=== PATIENT | male | born 1940 | race Caucasian/White ===

== ENCOUNTER 2019-08-03 13:45 | Inpatient (IN) | payer MEDICARE, OTHER ==
[~2019-08-03] VITALS: Ht 172.7 cm; Wt 57.0 kg
--- NOTE | 2019-08-03 18:00 | NUR ---
PT ADMITTED FROM HOME DUE TO AGGRESSION WITH REDIRECTION AND WANDERING. PT. FOUND ON [address] PER 'S REPORT. PT IS CALM AND COOPERATIVE WITH ADMIT AT THIS TIME. ADMIT WT IS 139.8. PT IS FULL CODE. VERBAL CONSENT PER MARIE RIZO. REC'D CODE NUMBER AND PT ADMISSION PAPERWORK AT THIS TIME.
[2019-08-03 19:00] VITALS: BP 128/77
--- NOTE | 2019-08-03 20:21 | NUR ---
RECEIVED IN DAYROOM. SITTING CALMLY IN A CHAIR WITH PEERS AT HIS SIDE. CALM AND COOPERATIVE WITH CARE AND ASSESSMENT. NO SIGNS OF AGGRESSION. REDIRECT AND REORIENT NEEDED. CONTINUES TO SIT CALMLY IN DAYROOM. CONTINUE PLAN OF CARE.
[2019-08-03 23:42] VITALS: BP 128/77; BMI 21.3
[2019-08-04] MEDS ORDERED: FLOMAX0.4 MG PO (00:19)
[2019-08-04] MEDS ORDERED: CENTRUM MEN'S1 EACH PO (00:20)
[2019-08-04] MEDS ORDERED: GABAPENTIN300 MG PO (00:20)
[2019-08-04] MEDS ORDERED: MELATONIN10 M1 PO (00:20)
[2019-08-04] MEDS ORDERED: BAYER CHEWABLE81 MG PO (00:21)
[2019-08-04] MEDS ORDERED: POTASSIUM99 M1 PO (00:21)
[2019-08-04] MEDS ORDERED: TYLENOL ARTHRI650 MG PO (00:21)
[2019-08-04 07:25] LABS: EOSINOPHILS 2.9 % (0-7); HEMATOCRIT 37.5 % (42.0-54.0); HEMOGLOBIN 12.3 g/dL (13.5-17.5); IMMATURE GRANULOCYTES 0.5 % (0-5); LYMPHOCYTES 34.2 % (15-50); MCH 30.5 pg (26.0-34.0); MCHC 32.8 g/dL (31.0-37.0); MCV 93.1 fL (80.0-100.0); MEAN PLATELET VOLUME 10.3 fL (7.4-10.4); MONOCYTES 10.8 % (2-11); NEUTROPHILS 50.6 % (40-80); PLATELET COUNT 189 10x3/uL (130-400); RBC 4.03 10x6/uL (4.20-6.10); RDW 13.2 % (11.5-14.5); WBC 4.2 10x3/uL (4.8-10.8)
[2019-08-04 08:08] LABS: ALBUMIN 3.5 g/dL (3.4-5.0); ANION GAP 10.5 mmol/L (8-16); BILIRUBIN - TOTAL 0.35 mg/dL (0.2-1.3); CALCIUM 8.8 mg/dL (8.5-10.1); CARBON DIOXIDE 29.3 mmol/L (21.0-32.0); CHOL - HDL RATIO 4.2 ratio (2.3-4.9); CREATININE - SERUM 1.3 mg/dL (0.6-1.3); LDL-HDL RATIO 2.8 ratio (1.5-3.5); POTASSIUM - SERUM 3.8 mmol/L (3.5-5.1); PROTEIN - SERUM 7.7 g/dL (6.4-8.2); THYROID STIMULATING HORMONE 2.55 uIU/mL (0.36-3.74)
[2019-08-04 08:41] VITALS: Ht 172.7 cm; Wt 57.0 kg
[2019-08-04 08:58] VITALS: BP 140/86
--- NOTE | 2019-08-04 10:15 | NUR ---
PT REFUSED TO GIVE CLEAN CATCH FOR URINE AND CULTURE. ATTEMPTED 2X AND PT BECAME AGITATED AND COMBATIVE. UNABLE TO OBTAIN SPECIMAN. WILL ATTEMPT AT A LATER TIME.
--- NOTE | 2019-08-04 11:25 | NUR ---
PT BECAME COMBATIVE WITH STAFF AT THIS TIME. PT HAD BEEN EXIT SEEKING, AGITATED. ATIVAN 0.5 MG IM AND HALDOL 2 MG IM GIVEN PER DR. GARCIA ORDER. PT TOLERATED WELL. WILL CONT TO MONITOR. WILL REASSES.
--- NOTE | 2019-08-04 12:25 | NUR ---
NO AGGRESSION NOTED AT THIS TIME. PT REMAINS ACTIVE DURING THIS TIME. PRN EFFECTIVE.
[2019-08-04 20:00] VITALS: BP 164/91
--- NOTE | 2019-08-04 20:33 | NUR ---
RECEIVED IN DAYROOM. SITTING ON THE SOFA. KEEPING TO HIMSELF. CALM AND COOPERATIVE WITH CARE AND ASSESSMENT. NO SIGNS OF AGGRESSION. REDIERCT AND REORIENT NEEDED. CONTINUES TO SIT CALMLY IN DAYROOM. CONTINUE PLAN OF CAER.
--- NOTE | 2019-08-04 21:14 | NUR ---
BECOMING INCREASINGLY AGITATED. HIGH ANXIETY. PRN ATIVAN 0.5 MG IM GIVEN FOR ANXIETY AND PRN HALDOL GIVEN FOR PSYCHOTIC BEHAVIOR. CONTINUE TO MONITOR.
--- NOTE | 2019-08-05 00:01 | NUR ---
CONTINUES TO BE RESTLESS. ATTEMPTS TO STAND FROM BED WITHOUT ASSIST. MOVED TO HALLWAY AT NURSES STATION FOR SAFETY.
[2019-08-05 07:13] LABS: RAPID PLASMA REAGIN Non Reactive (Non Reactive)
[2019-08-05 08:00] VITALS: BP 157/91
--- NOTE | 2019-08-05 12:59 | NUR ---
RECEIVED IN HALLWAY OUTSIDE OF NURSES STATION. CALM AND COOPERATIVE WITH CARE AND ASSESSMENT. NO AGGRESSION THIS MORNING. REDIRECT AND REORIENT NEEDED. EATING AT THIS TIME. CONTINUE PLAN OF CARE.
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
[2019-08-05 20:00] VITALS: BP 145/96
--- NOTE | 2019-08-06 00:38 | NUR ---
B.) PT IS ALERT AND ORIENTED TO SELF ONLY. HE IS RECEIVED IN THE DAYROOM PACING THE ROOM. HE IS INTRUSIVE WITH STAFF AND ATTEMPTING TO TAKE FOOD OUT OF THE REFRIGERATOR. HE IS AGITATED AND LABILE IN HIS MOODS. I.) PROVIDED PM MEDICATIONS PRESCRIBED. REDIRECT OFTEN. R.) COMPLIANT WITH ALL MEDICATIONS. DIFFICULT TO REDIRECT. P.) WILL CONTINUE TO MONITOR.
[2019-08-06 00:51] LABS: BILIRUBIN NEGATIVE (NEGATIVE); GLUCOSE NEGATIVE (NEGATIVE); KETONE NEGATIVE (NEGATIVE); NITRITE NEGATIVE (NEGATIVE); UROBILINOGEN NORMAL (NORMAL)
--- NOTE | 2019-08-06 08:16 | NUR ---
PT IS RECEIVED THIS MORNING SITTING IN A GERICHAIR. HE IS CALM AND COOPERATIVE WITH STAFF. HE IS A LITTLE UNSTEADY THIS MORNING. HE IS ABLE TO VOICE HIS NEEDS AND WANTS. CURRENTLY ONLY ALERT AND ORIENTED TO SELF. WILL CONTINUE TO MONITOR.
[2019-08-06 10:25] VITALS: BP 166/97
--- NOTE | 2019-08-06 12:57 | PN ---
PATIENT:LISA RIZO MEDICAL RECORD: [id number] LOCATION:[facility] ADMISSION DATE: 08/03/19 PROGRESS NOTE DATE OF SERVICE: 08/05/2019 SUBJECTIVE: The patient's case was discussed with staff. He has no new complaint. OBJECTIVE: The patient is not eating adequately. He is quite confused and at times very agitated. ASSESSMENT: Dementia. PLAN: The patient will be continued on current medicines; however, I am going to start him on Megace for appetite stimulation. I am also going to give him a low dose of Seroquel to assist with his thought disorganization and disruptive behaviors. TRANSINT:[id number] Voice Confirmation ID: [id number] DOCUMENT ID: [id number] ERNIE GARCIA MD at 1257 CC: [id number] DICTATION DATE: 08/05/19 1445 SECURITY FLEX UTILITY OFFICER: 08/05/19 1522 [facility] IN [place] [address] [place] [address]
--- NOTE | 2019-08-06 23:00 | NUR ---
B) Patient is alert and oriented to self, restless and very confused, difficult to redirect I) Administered scheduled medications as ordered, PRN Ativan 0.5 mg IM given at 20:51 for anxiety R) Mediation compliant, still resless at times, restless sleep P) Continue plan of care/
--- NOTE | 2019-08-07 09:37 | NUR ---
The patient is real sleepy this am, he is laying back in the recliner with his neck postured. He awakened to take his am meds, he also spoke to Kacy Mora RN, respiratory care program director when she spoke to him. He is pleasant. Staff have to assist him to eat. Provide prescribed. The patient is compliant with meds. Continue POC.
[2019-08-07 10:22] VITALS: BP 116/78
--- NOTE | 2019-08-07 11:56 | NUR ---
PT NOTED POCKETING FOOD FROM BREAKFAST. SPEECH THERAPY CONSULT ORDERED.
--- NOTE | 2019-08-07 14:45 | PN ---
PATIENT:LISA RIZO MEDICAL RECORD: [id number] LOCATION:[facility] ADMISSION DATE: 08/03/19 PROGRESS NOTE DATE OF SERVICE: 08/06/2019 SUBJECTIVE: The patient's case was discussed with staff. He has no new complaint. OBJECTIVE: The patient is in good behavioral control. He has poor insight about his situation. He is less aggressive than he has been. ASSESSMENT: Dementia. PLAN: Current medicines and therapies have been reviewed and will be maintained. Long-term prognosis is guarded. TRANSINT:[id number] Voice Confirmation ID: [id number] DOCUMENT ID: [id number] ERNIE GARCIA MD at 1445 CC: [id number] DICTATION DATE: 08/06/19 1521 GUN SEALING MACHINE OPERATOR: 08/06/19 2316 ADM IN [place] [id number] [place] [address]
--- NOTE | 2019-08-07 15:46 | NUR ---
Nutrition Follow-up: Seen by ST today and LEAD ENGINEER recommends [facility] Soft, thin liquids. Appetite improved and started on Megace yesterday per MD notes. Diet: Regular [facility] Soft PO intake: ~54% average x last 6 meals Last BM: none recorded since admit (x at least 4 days). WT: 139.8# (08/04/19) Meds noted: megace. No new labs. Recommend continue current diet or per LEAD ENGINEER recommendations for consistency. Hopefully megace will continue to help. May add oral nutrition supplement if PO intake does not improve. RD following.
[2019-08-07 20:10] VITALS: BP 120/84
--- NOTE | 2019-08-07 23:37 | NUR ---
B.) PT IS ALERT AND ORIENTED TO SELF ONLY. HE HAS POOR INSIGHT INTO HIS SITUATION. HE IS OBSERVED HAVING VISUAL HALLUCINATIONS. I.) PROVIDED PM MEDICATIONS PRESCRIBED. REDIRECT OFTEN. R.) COMPLIANT WITH ALL MEDICATIONS. EASY TO REDIRECT. P.) WILL CONTINUE TO MONITOR.
--- NOTE | 2019-08-08 11:16 | NUR ---
The patient is awake, he knows his name only. He is hallucinating and grabbing at things in the air. He is pleasant and has not shown any aggression. Provide prescribed meds. The patient is compliant with meds, crushed and given in thickened fluids. He still continues to pocket his food, but does better with softer foods. Continue POC.
[2019-08-08 11:35] VITALS: BP 127/85
--- NOTE | 2019-08-08 12:46 | PN ---
PATIENT:LISA RIZO MEDICAL RECORD: [id number] LOCATION:[facility] ADMISSION DATE: 08/03/19 PROGRESS NOTE DATE OF SERVICE: 08/07/2019 SUBJECTIVE: The patient's case was discussed with staff. He has no new complaint. OBJECTIVE: The patient denies intent to harm himself or others. His behavior has been better. He ate reasonably well yesterday and slept 6 hours last night. ASSESSMENT: Dementia. PLAN: Speech has seen the patient because there has been observed problems with him processing the food. He will be monitored for clinical changes, and at this point, I do not have the report back from speech pathology, but we will naturally follow their recommendations. TRANSINT:[id number] Voice Confirmation ID: [id number] DOCUMENT ID: [id number] ERNIE GARCIA MD at 1246 CC: [id number] DICTATION DATE: 08/07/19 1523 WEDDING PLANNER: 08/08/19 0039 ADM IN [place] [id number] [place] [address]
[2019-08-08 13:17] LABS: BASOPHILS 0.1 % (0-2); EOSINOPHILS 0 % (0-7); HEMATOCRIT 37.7 % (42.0-54.0); HEMOGLOBIN 12.6 g/dL (13.5-17.5); IMMATURE GRANULOCYTES 0.3 % (0-5); LYMPHOCYTES 10.8 % (15-50); MCHC 33.4 g/dL (31.0-37.0); MCV 92.9 fL (80.0-100.0); MEAN PLATELET VOLUME 9.9 fL (7.4-10.4); MONOCYTES 14.3 % (2-11); NEUTROPHILS 74.5 % (40-80); PLATELET COUNT 163 10x3/uL (130-400); RBC 4.06 10x6/uL (4.20-6.10); RDW 13.8 % (11.5-14.5); WBC 8.9 10x3/uL (4.8-10.8)
[2019-08-08 13:51] LABS: ALBUMIN 3.4 g/dL (3.4-5.0); ANION GAP 12.2 mmol/L (8-16); BILIRUBIN - TOTAL 0.72 mg/dL (0.2-1.3); CALCIUM 9.4 mg/dL (8.5-10.1); CARBON DIOXIDE 27.5 mmol/L (21.0-32.0); CREATININE - SERUM 1.4 mg/dL (0.6-1.3); POTASSIUM - SERUM 3.7 mmol/L (3.5-5.1); PROTEIN - SERUM 7.8 g/dL (6.4-8.2)
[2019-08-08 20:21] VITALS: BP 126/95
--- NOTE | 2019-08-08 22:48 | NUR ---
B.) PT IS ALERT AND ORIENTED TO SELF ONLY. HE IS RECIVEIVED IN THE DAYROOM IN A GERICHAIR. HE IS HAVING VISUAL AND AUDITORY HALLUCINATIONS. HE HAS SPELLS WHERE HE IS FEARFUL OF FALLING OUT OF THE OTIS-CHAIR AND HE SHAKES UNTIL REDIRECTED. HE IS VERY RESTLESS. HE IS OBSERVED SPITTING IN HIS HANDS AND THROWING IT AT THE WALL. I.) PROVIDED PM MEDICATIONS PRESCRIBED. AND ADMINISTERED PRN ATIVAN 0.5 MG IM. REDIRECT OFTEN. R.) COMPLIANT WITH ALL MEDICATIONS. UNABLE TO REDIRECT. P.) WILL CONTINUE TO MONITOR.
--- NOTE | 2019-08-08 23:25 | NUR ---
PT IS STILL RESTLESS AND HAVING TERROR TREMORS. HE STILL FEARS HE IS FALLING. NO SIGNS OF RESPIRATORY DISTRESS. WILL CONTINUE TO MONITOR.
--- NOTE | 2019-08-08 23:52 | NUR ---
PT IS RESTING GERICHAIR IN THE HALLWAY OUTSIDE THE NURSES STATION WITH EYES CLOSED NO DISTRESS OR TREMORS NOTED. WILL CONTINUE TO MONITOR.
[2019-08-09 08:25] VITALS: BP 141/78
--- NOTE | 2019-08-09 10:53 | NUR ---
The patient is leaning over to his right side. At breakfast he said "Hold my hand I am falling." He is very sleepy now after breakfast. Physical Therapy came to see what he can do to assist the patient to stand. The patient is too sleepy to sit up or stand. Asked Dr. Mckinney if we can change his diet to puree as he continues to cheek his food. Fed him ice cream, pudding, and oatmeal. Provide prescribed meds. The patient is compliant with meds. Continue POC.
--- NOTE | 2019-08-09 13:04 | PN ---
PATIENT:LISA RIZO MEDICAL RECORD: [id number] LOCATION:[facility] ADMISSION DATE: 08/03/19 PROGRESS NOTE DATE OF SERVICE: 08/08/2019 SUBJECTIVE: The patient's case was discussed with staff. He has no new complaint. OBJECTIVE: The patient is sedated. He has not been disruptive in any way. He is denying any thoughts of harming himself or others. ASSESSMENT: Dementia. PLAN: Going to hold the patient's psychiatric medications for the time being. I am also going to check some baseline labs. TRANSINT:[id number] Voice Confirmation ID: [id number] DOCUMENT ID: [id number] ERNIE GARCIA MD at 1304 CC: [id number] DICTATION DATE: 08/08/19 1317 FREELANCE GRAPHIC DESIGNER: 08/08/19 1735 ADM IN [place] [id number] [place] [address]
--- NOTE | 2019-08-09 14:52 | PN ---
PATIENT:LISA RIZO MEDICAL RECORD: [id number] LOCATION:[facility] ADMISSION DATE: 08/03/19 PROGRESS NOTE DATE OF SERVICE: 08/09/2019 SUBJECTIVE: The patient's case was discussed with staff. He has no new complaint. OBJECTIVE: The patient is confused and impaired. He is arousable and awake, but only oriented to person. He did require some p.r.n. Ativan last night because of some agitation. He is not eating adequately. ASSESSMENT: Dementia. PLAN: The patient is going to have a CT of his head performed in case there is some neurologic explanation for this change. I suspect that it is probably related to the medications that he has been prescribed, which have now been discontinued. Also, there is a lingering effect from some of the medicine that has been used to control his behavior. I suspect he will improve over the next couple of days as those medicines have an opportunity to be washed out. As a precautionary matter, I am going to check a CT of the head. He is not on any psychoactive medications right now. TRANSINT:[id number] Voice Confirmation ID: [id number] DOCUMENT ID: [id number] ERNIE GARCIA MD at 1452 CC: [id number] DICTATION DATE: 08/09/19 1346 EKG TECH: 08/09/19 1404 ADM IN [place] [address] [place] [address]
--- NOTE | 2019-08-09 15:36 | NUR ---
Bladder scan with 49 ml noted. The patient is voiding urine.
--- NOTE | 2019-08-09 18:38 | NUR ---
The patient is too sedated to acquire a urine sample today. Will pass the information on to the next shift.
--- NOTE | 2019-08-09 19:48 | NUR ---
RECEIVED IN DAYROOM. LAYING IN RECLINER AT THE TABLE. CALM AND COOPERATIVE WITH CARE AND ASSESSMENT. RESTLESS AT TIMES. CALM AND COOPERATIVE WITH AND ASSESSMENT. NO SIGNS OF AGGRESSION. REDIRECT AND REORIENT NEEDED. CONTINUES TO REST IN RECLINER. CONTINUE PLAN OF CARE.
[2019-08-09 20:24] VITALS: BP 106/77
--- NOTE | 2019-08-09 23:32 | NUR ---
INCREASING ANXIETY. FEARFUL OF UNKNOWN THINGS. YELLING OUT LOUDLY. UNABLE TO REDIRECT. PRN ATIVAN 0.5 MG IM GIVEN FOR ANXIETY AND PRN HALDOL 2 MG IM GIVEN FOR PSYCHOTIC BEHAVIOR. CONTINUE TO MONITOR.
--- NOTE | 2019-08-10 02:04 | NUR ---
CONTINUES TO BE RESTLESS. NOT YELLING OUT AT THIS TIME. IN HALLWAY AT NURSES STATION FOR SAFETY.
[2019-08-10 09:07] VITALS: BP 136/84
--- NOTE | 2019-08-10 12:00 | NUR ---
RECEIVED IN HALLWAY OUTSIDE OF NURSES STATION. CALM AND COOPERATIVE WITH CARE AND ASSESSMENT. NO BEHAVIORS. REDRIECT AND REORIENT NEEDED. EATING LUNCH AT THIS TIME. CONTINUE PLAN OF CARE.
[2019-08-10 19:45] VITALS: BP 114/89
--- NOTE | 2019-08-10 20:19 | NUR ---
RECEIVED IN DAYROOM. SITTING IN A CHAIR WITH EYES CLOSED. RESPONDS TO TOUCH. CALM AND COOPERATIVE WITH CARE AND ASSESSMENT. NO SIGNS OF AGGRESSION. REDIRECT AND REORIENT NEEDED. CONTINUES TO SIT CALMLY WITH EYES CLOSED. CONTINUE PLAN OF CARE.
[2019-08-11 00:43] LABS: BILIRUBIN NEGATIVE (NEGATIVE); EPITHELIAL CELLS 0-5 /hpf (0-5); GLUCOSE NEGATIVE (NEGATIVE); KETONE MODERATE mg/dL (NEGATIVE); NITRITE NEGATIVE (NEGATIVE); RED CELLS - URINE 0-5 /hpf (0-5); SPECIFIC GRAVITY 1.025 (1.005-1.020); UROBILINOGEN NORMAL (NORMAL); WHITE CELLS - URINE 0-5 /hpf (NEGATIVE)
[2019-08-11 00:44] LABS: AMORPHOUS SEDIMENT <1+ /lpf (NONE SEEN); BACTERIA FEW /hpf (NEGATIVE)
[2019-08-11 09:53] VITALS: BP 142/90
--- NOTE | 2019-08-11 12:00 | NUR ---
RECEIVED IN HALLWAY OUTSIDE OF NURSES STATION. CALM AND COOPERATIVE WITH CARE AND ASSESSMENT. NO BEHAVIORS. REDIRECT AND REORIENT NEEDED. EATING LUNCH AT THIS TIME. CONTINUE PLAN OF CARE.
--- NOTE | 2019-08-11 13:53 | PN ---
PATIENT:LISA RIZO MEDICAL RECORD: [id number] LOCATION:[facility] ADMISSION DATE: 08/03/19 PROGRESS NOTE DATE OF SERVICE: 08/10/2019 SUBJECTIVE: The patient's case was discussed with staff. He has no new complaint. OBJECTIVE: The patient is only oriented to person. He is not sleeping adequately at night. He is still not eating adequately. Apparently, he became aggressive and was having both auditory and visual hallucinations last night. He did receive Haldol and Ativan for this and is still showing effects of sedation today. ASSESSMENT: Dementia. PLAN: The patient will be maintained on current medicines. I am not currently prescribing any psychoactive medicines for him. I am; however, going to start him back on Namenda. He is receiving Megace for appetite stimulation and if that is not effective obviously, his outcome is quite poor. TRANSINT:[id number] Voice Confirmation ID: [id number] DOCUMENT ID: [id number] ERNIE GARCIA MD at 1353 CC: [id number] DICTATION DATE: 08/10/19 1524 LEAN CONSULTANT: 08/11/19 0206 ADM IN [facility] [address] [place] [id number]
[2019-08-11 19:49] VITALS: BP 129/82
--- NOTE | 2019-08-12 01:12 | NUR ---
B) Patient is alert and oriented to self, calm and cooperative with care I) Administered scheduled medications as ordered, monitored for safety R) Mediation compliant, sleeping now in his bed P) Continue plan of care.
[2019-08-12 10:25] VITALS: BP 91/56
--- NOTE | 2019-08-12 11:10 | NUR ---
Nutrition Follow-up: Chart reviewed. Patient followed by ST, most recent note indicates no s/s aspiration with thin liquids or regular consistency. Per FULL CHARGE BOOKKEEPER notes nursing staff suggest that patient with increased PO intake of puree diet. Diet: Regular Puree PO intake: ~52% average x last 9 meals Last BM: no BM recorded since admit (x 9 days now) Wt: 129# (08/09/19); Admit WT: 139.8# (08/03/19) Meds noted: megace ES (started 08/06/19). Labs noted (08/08/19): BUN 30(H), Cr 1.4(H), Glu 115(H) Recommend PO diet per FULL CHARGE BOOKKEEPER recommendations. Will add Ensure with meals. Continue encouraged PO intake during meal times. May need increase in bowel regimen 2/2 no recorded BM since admit. Hopefully PO intake would improve with BM regularity. Weight loss of 10# noted. RD following.
--- NOTE | 2019-08-12 14:58 | NUR ---
RECEIVED IN HALLWAY OUTSIDE OF NURSES STATION. CALM AND COOPERATIVE WITH CARE AND ASSESSMENT. NO BEHAVIORS TODAY. REDIRECT AND REORIENT NEEDED. SITTING IN GROUP AT THIS TIME. CONTINUE PLAN OF CARE.
[2019-08-12 20:49] VITALS: BP 125/74
--- NOTE | 2019-08-13 01:38 | NUR ---
B.) PT IS ALERT AND ORIENTED TO SELF ONLY. HE HAS POOR INSIGHT INTO HIS SITUATION. HE IS RECEIVED IN THE DAYROOM IN HIS GERICHAIR. HE IS OBSERVED HAVING VISUAL HALLUCINATIONS. I.) PROVIDED PM MEDICATIONS PRESCRIBED. REDIRECT OFTEN. R.) COMPLIANT WITH ALL MEDICATIONS. EASY TO REDIRECT. P.) WILL CONTINUE TO MONITOR.
--- NOTE | 2019-08-13 08:30 | NUR ---
PATIENT IS ALERT AND ORIENTED TO SELF ONLY. RECEIVED IN HALLWAY SITTING IN OTIS-CHAIR. NO HALLUCINATIONS NOTED. REDIRECT AND REORIENT NEEDED. ADMINISTER PRESCRIBED MEDICATIONS. COMPLIANT WITH MEDICATIONS. WILL CONTINUE TO MONITOR.
--- NOTE | 2019-08-13 13:50 | NUR ---
PT HERE TO WORK WITH PT AT THIS TIME.
--- NOTE | 2019-08-13 15:30 | PN ---
PATIENT:LISA RIZO MEDICAL RECORD: [id number] LOCATION:[facility]o ADMISSION DATE: 08/03/19 PROGRESS NOTE DATE OF SERVICE: 08/11/2019 SUBJECTIVE: The patient's case was discussed with staff. He has no new complaint. OBJECTIVE: The patient is more alert and interactive, even though what he is saying is not making sense. He is pleasant, smiling and talking to me appropriately. He is still not eating adequately. ASSESSMENT: Dementia. PLAN: Current medicines have been reviewed and will be maintained. Long-term prognosis is guarded. Void nevertheless. TRANSINT:[id number] Voice Confirmation ID: [id number] DOCUMENT ID: [id number] ERNIE GARCIA MD at 1530 CC: [id number] DICTATION DATE: 08/11/19 1601 ONLINE MARKETING ANALYST: 08/12/19 0158 ADM IN [facility] [address] [place] [address]
--- NOTE | 2019-08-13 15:30 | PN ---
PATIENT:LISA RIZO MEDICAL RECORD: [id number] LOCATION:[facility] Arroyo ADMISSION DATE: 08/03/19 PROGRESS NOTE DATE OF SERVICE: 08/12/2019 SUBJECTIVE: The patient's case was discussed with staff. He has no new complaint. OBJECTIVE: The patient is significantly better cognitively. He is talking and making some sense, although it is clear he is very impaired. ASSESSMENT: Dementia. PLAN: I am going to start the patient on Namenda at a low dose. His behavior so far have been good. TRANSINT:[id number] Voice Confirmation ID: [id number] DOCUMENT ID: [id number] ERNIE GARCIA MD at 1530 CC: [id number] DICTATION DATE: 08/12/19 1645 ONCOLOGY SPECIALIST: 08/13/19 0012 ADM IN [place] [id number] [place] [address]
--- NOTE | 2019-08-13 16:30 | NUR ---
SW MET WITH PT'S , MARIE, TO DISCUSS PT'S PROGRESS AND DISCHARGE PLANNING NEEDS. SW EXPLAINED THE DIFFERENT LEVELS OF CARE AND PT'S IMPROVEMENT AT THIS TIME. PT'S STATED SHE WANTED HIM TO RETURN HOME AND HAVE SERVICES IN THE HOME ENVIRONMENT.
--- NOTE | 2019-08-13 17:52 | NUR ---
PT ATTEMPTING TO STAND UP AND AMBULATE PER SELF. REDIRECT PT NEEDED.
[2019-08-13 20:16] VITALS: BP 103/65
--- NOTE | 2019-08-13 22:23 | NUR ---
B.) PT IS ALERT AND ORIENTED TO SELF ONLY. HE HAS POOR INSIGHT INTO HIS SIUATION. HE IS CALM, COOPERATIVE AND PLEASANT WITH STAFF OFTEN OBSERVED MAKING JOKES. HE IS USING A WHEELCHAIR TO ASSIST WITH AMBULATION. STILL OBSERVED HAVING AUDITORY AND VISUAL HALLUCINATIONS IN HIS BED. I.) PROVIDED PM MEDICATIONS. REDIRECT OFTEN. R.) COMPLIANT WITH ALL MEDICATIONS. EASY TO REDIRECT. P.) WILL CONTINUE TO MONITOR.
--- NOTE | 2019-08-14 01:50 | NUR ---
ATIVAN IM GIVEN TO PATIENT FOR EXTREME AGITAITON, PATIENT WAS SHAKING THE RAILS AND POINTING AT THE WALL SAYING, "DO YOU SEE THAT?" TRIED MULTIPLE TIMES TO TALK TO HIM AND DISTRACT HIM BUT IT DID NOT WORK. PATIENT IS STILL AWAKE AT HIS TIME AND IS MOVING NON-STOP IN THE BED, NOT SHAKING THE BED RAILS. WILL CONTINUE TO MONITOR
--- NOTE | 2019-08-14 09:11 | NUR ---
SW SPOKE WITH PT'S DTR TO DISCUSS PT'S CONDITION AND DISCHARGE PLANNING NEEDS AT THIS TIME. SW STATED PT'S WANTS TO TAKE HIM HOME. PT'S DTR VOICED UNDERSTANDING OF DISCUSSION.
--- NOTE | 2019-08-14 09:12 | NUR ---
SW SPOKE TO A HOSPICE REPRESENATIVE FROM PT'S HOME TOWN. KRYSTA [phone]. SHE STATED IF PT DOESN'T QUALIFY FOR HOSPICE THERE IS A HOME HEALTH AGENCY THEY WORK WELL WITH: '[facility] [phone].
[2019-08-14 10:27] VITALS: BP 130/77
--- NOTE | 2019-08-14 12:53 | PN ---
PATIENT:LISA RIZO MEDICAL RECORD: [id number] LOCATION:[facility] ADMISSION DATE: 08/03/19 PROGRESS NOTE DATE OF SERVICE: 08/13/2019 SUBJECTIVE: The patient's case was discussed with staff. He has no new complaint. OBJECTIVE: The patient is clearly better. By better I mean, he is awake, alert, interacting and eating and drinking. I think the recent episodes were associated with him being overmedicated. He was being medicated because of his aggressive behavior. He is no longer aggressive and hopefully that will not be a problem. He did not sleep last night and he has not slept today. I am going to give him some trazodone and hopefully that will assist him with sleep tonight. TRANSINT:[id number] Voice Confirmation ID: [id number] DOCUMENT ID: [id number] ERNIE GARCIA MD at 1253 CC: [id number] DICTATION DATE: 08/13/19 1630 HOME CARE RN: 08/13/19 1650 ADM IN [place] [id number] [place] [address]
--- NOTE | 2019-08-14 13:09 | NUR ---
The patient is sleeping today. He awakened to eat ice cream with his meds. He then fell back to sleep. He is difficult to transfer even with three staff. Provide prescribed meds. The patient is compliant with meds. Continue POC.
[2019-08-14 20:00] VITALS: BP 133/74
--- NOTE | 2019-08-14 20:00 | NUR ---
RECEIVED PATIENT IN DAYROOM, CONFUSED, PATIENT HAS NON STOP KINETIC MOTION! HE CAN MAKE SIMPLE NEEDS KNOWN AT TIMES. HE SEES THINGS AT TIMES AND POINTS AT THEM. HE IS PLEASANT. WILL FOLLOW POC
--- NOTE | 2019-08-15 08:14 | NUR ---
The patient is confused, he knows his name only. He is pleasant, but on assessment he was in his room in his bed and he had taken off his gown and underpants, and he had no covers on. Said to him "What are you doing without clothes and covers?" His response "Are you talking to me?" He really has poor insight into his situation and he is not able to follow simple direction. Provide prescribed meds. The patient is compliant with meds crushed. Offer fluids every two hours as well as toileting. Continue POC.
[2019-08-15 09:32] VITALS: BP 124/83
--- NOTE | 2019-08-15 12:58 | PN ---
PATIENT:LISA RIZO MEDICAL RECORD: [id number] LOCATION:[facility] ADMISSION DATE: 08/03/19 PROGRESS NOTE DATE OF SERVICE: 08/14/2019 SUBJECTIVE: The patient's case was discussed with staff. He has no new complaint. OBJECTIVE: The patient received p.r.n. Ativan last night for agitated behavior and is very overmedicated at this point. I am going to discontinue his p.r.n. Ativan and will order a small dose of Haldol for any agitated behavior. TRANSINT:[id number] Voice Confirmation ID: [id number] DOCUMENT ID: [id number] ERNIE GARCIA MD at 1258 CC: [id number] DICTATION DATE: 08/14/19 1501 CELLOPHANE TESTER: 08/15/19 0111 ADM IN [place] [id number] [place] [address]
[2019-08-15 20:00] VITALS: BP 124/83
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
[2019-08-16 09:34] VITALS: BP 126/72
--- NOTE | 2019-08-16 12:00 | NUR ---
RECEIVED IN HALLWAY OUTSIDE OF NURSES STATION. CALM AND COOPERATIVE WITH CARE AND ASSESSMENT. NO AGGRESSION. REDIRECT AND REORIENT NEEDED. EATING AT THIS TIME. CONTINUE PLAN OF CARE.
--- NOTE | 2019-08-16 12:26 | PN ---
PATIENT:LISA RIZO MEDICAL RECORD: [id number] LOCATION:[facility] ADMISSION DATE: 08/03/19 PROGRESS NOTE DATE OF SERVICE: 08/15/2019 SUBJECTIVE: The patient's case was discussed with staff. He has no new complaint. OBJECTIVE: The patient is eating a little better today. He is more awake and alert. ASSESSMENT: Dementia. PLAN: The patient's Namenda is going to be increased to 5 mg twice daily. Namenda is being used to treat his underlying cognitive impairment. He will be monitored for clinical changes associated with its use. TRANSINT:[id number] Voice Confirmation ID: [id number] DOCUMENT ID: [id number] ERNIE GARCIA MD at 1226 CC: [id number] DICTATION DATE: 08/15/19 1413 DIALYSIS EQUIPMENT TECHNICIAN: 08/15/19 1739 ADM IN [place] [id number] [place] [address]
[2019-08-16 19:53] VITALS: BP 95/64
--- NOTE | 2019-08-16 20:12 | NUR ---
RECEIVED IN DAYROOM. SITTING IN A CHAIR WITH PEERS AT HIS SIDE. CALM AND COOPERATIVE WITH CARE AND ASSESSMENT. RESTLESS AT TIMES. NO SIGNS OF AGGRESSION. REDIRECT AND REORIENT NEEDED. CONTINUES TO SIT IN DAYROOM. CONTINUE PLAN OF CARE.
[2019-08-17 10:08] VITALS: BP 130/64
--- NOTE | 2019-08-17 13:17 | PN ---
PATIENT:LISA RIZO MEDICAL RECORD: [id number] LOCATION:[facility] ADMISSION DATE: 08/03/19 PROGRESS NOTE DATE OF SERVICE: 08/16/2019 SUBJECTIVE: The patient slept well last night. He was not aggressive. ASSESSMENT: Dementia. PLAN: Current medicines have been reviewed and will be maintained. He will be monitored for clinical changes and I will discuss discharge plans with the treatment team tomorrow. TRANSINT:[id number] Voice Confirmation ID: [id number] DOCUMENT ID: [id number] ERNIE GARCIA MD at 1317 CC: [id number] DICTATION DATE: 08/16/19 1434 TECHNICAL OPERATIONS MANAGER: 08/16/19 1713 ADM IN [place] [id number] [place] [address]
--- NOTE | 2019-08-17 14:58 | NUR ---
RECEIVED IN HALLWAY OUTSIDE OF NURSES STATION. CALM AND COOPERATIVE WITH CARE AND ASSESSMENT. NO AGGRESSION. REDIRECT AND REORIENT NEEDED. SITTING IN GROUP AT THIS TIME. CONTINUE PLAN OF CARE.
[2019-08-17 20:11] VITALS: BP 131/74
--- NOTE | 2019-08-17 23:15 | NUR ---
B.) PT IS ALERT AND ORIENTED TO SELF ONLY. HE HAS POOR INSIGHT INTO HIS SITUATION. HE IS RESTLESS IN HIS GERICHAIR AND ATTEMPTS TO GET UP WITHOUT ASSIST. HE IS PLEASANT AND COOPERATIVE WITH STAFF. I.) PROVIDED PM MEDICATIONS. REDIRECT OFTEN. R.) COMPLIANT WITH ALL MEDICATIONS. EASY TO REDIRECT. P.) WILL CONTINUE TO MONITOR.
[2019-08-18 08:31] VITALS: BP 108/74
--- NOTE | 2019-08-18 09:00 | NUR ---
SW RECIEVED A CALL FROM PT'S STEP DAUGHTER JOSE L TO DISCUSS PT'S CONDITION AND DISCHARGE PLANNING NEEDS. SW GAVE UPDATE AND STATED DISCHARGE PLANS CAN GO IN TWO DIFFERENT WAYS DEPENDING ON PT'S CONDITION AFTER THE RIGHT MEDICATION REGIMEN IS FOUND AND PT IS STABLE OR AT BASELINE BEHAVIOR. JOSE L VOICED UNDERSTANDING OF CONVERSATION.
--- NOTE | 2019-08-18 11:47 | NUR ---
PT IS ALERT TO PERSON ONLY. CALM AND COOPERATIVE WITH ASSESSMENT. PRESCRIBED MEDS PROVIDED. MED COMPLIANT. REDIRECT AND REORIENT NEEDED. FALL PRECAUTIONS IN PLACE. WILL CPOC.
--- NOTE | 2019-08-18 14:50 | PN ---
PATIENT:LISA RIZO MEDICAL RECORD: [id number] LOCATION:[facility] ADMISSION DATE: 08/03/19 PROGRESS NOTE DATE OF SERVICE: 08/17/2019 SUBJECTIVE: The patient's case was discussed with staff. He has no new complaint. OBJECTIVE: The patient seems a little sedated, even though he has not had anything except the trazodone for 2 days now. Based on this, I am going to discontinue the trazodone. NTS:[id number] Voice Confirmation ID: [id number] DOCUMENT ID: [id number] ERNIE GARCIA MD at 1450 CC: [id number] DICTATION DATE: 08/17/19 1313 INDUSTRIAL RELATIONS DIRECTOR: 08/17/19 2216 ADM IN [place] [id number] [place] [address]
[2019-08-18 20:54] VITALS: BP 141/78
--- NOTE | 2019-08-19 01:30 | NUR ---
B) patient is alert and oriented to self, hallucinating (visual) at times, very confused, restless and in constant motion, I) Administered scheduled medications as ordered, monitored for safety, repositioned him frequently R) Mediation compliant, restless at times, P) Continue plan of care.
[2019-08-19 09:46] VITALS: BP 111/69
--- NOTE | 2019-08-19 13:00 | PN ---
PATIENT:LISA RIZO MEDICAL RECORD: [id number] LOCATION:[facility] ADMISSION DATE: 08/03/19 PROGRESS NOTE DATE OF SERVICE: 08/18/2019 SUBJECTIVE: The patient's case was discussed with staff. He has no new complaint. OBJECTIVE: The patient is in good behavioral control. He is quite impaired cognitively, but has not been aggressive. ASSESSMENT: Dementia. PLAN: Current medicines will be maintained. I anticipate he can be transitioned out of the hospital soon. His appetite has also improved. TRANSINT:[id number] Voice Confirmation ID: [id number] DOCUMENT ID: [id number] ERNIE GARCIA MD at 1300 CC: [id number] DICTATION DATE: 08/18/19 1512 SALES AND SERVICE SPECIALIST: 08/19/[address] [facility] [address] [place] [address]
--- NOTE | 2019-08-19 14:46 | NUR ---
Nutrition Follow-up: Diet: Regular Puree PO intake: ~67% x last 6 meals Last BM: 08/19/19. WT: 128.8# (08/16/19); Admit Wt: 139.8# (08/03/19) Meds noted: raymundo michaels. No new labs. Noted weight difference of -11# since admit. PO intake has improved. Will add oral nutrition supplements to diet order. RD following.
--- NOTE | 2019-08-19 15:57 | NUR ---
PT SITTING IN DAY AREA. PT IS CONFUSED AND ALERT TO SELF ONLY. REDIRECT AND REORIENT NEEDED. PT COMPLIANT WITH MEDS, VITALS AND ASSESSMENT. PT WORKED WITH PHYSICAL THERAPY. PT REQUIRES ASSSISTANCE AND ENCOURAGEMENT FOR ADLS AND FEEDING. PT CONTS ON A MODIFIED DIET. CHAIR ALARM IN PLACE AND ACTIVE. WILL CONT PLAN OF CARE.
[2019-08-19 20:00] VITALS: BP 110/69
[2019-08-20 08:24] VITALS: BP 115/65
--- NOTE | 2019-08-20 14:41 | PN ---
PATIENT:LISA RIZO MEDICAL RECORD: [id number] LOCATION:[facility] ADMISSION DATE: 08/03/19 PROGRESS NOTE DATE OF SERVICE: 08/19/2019 SUBJECTIVE: The patient's case was discussed with staff. He has no new complaint. OBJECTIVE: The patient is much more awake, alert, and interactive. He has not been aggressive. He is also eating better. Clearly, the impairment recently was related to pharmacologic interventions both scheduled and p.r.n. He is not sleeping well at night and I am going to start him on a low dose of Seroquel. He is in need of 68-kgwr-k-day supervision and the treatment team is working closely with the family to assist in that area. TRANSINT:[id number] Voice Confirmation ID: [id number] DOCUMENT ID: [id number] ERNIE GARCIA MD at 1441 CC: [id number] DICTATION DATE: 08/19/19 1633 POT BUILDER: 08/20/19 0127 ADM IN [place] [id number] [place] [address]
--- NOTE | 2019-08-20 17:45 | NUR ---
PATIENT IS ALERT WITH CONFUSION NOTED. CALM AND COOPERATIVE WITH CARE AND ASSESSESSMENT. ADMINISTERED SCHEDULED MEDICATIONS. COMPLIANT WITH MEDS. REDIRECT AND REORIENT NEEDED. CONTINUE PLAN OF CARE. FALL PRECAUTIONS IN PLACE.
--- NOTE | 2019-08-20 19:59 | NUR ---
PATIENT IN DAYROOM, CONFUSED, NON STOP MOVEMENT AND NON STOP VERBALLY WELL, MEDS HAVE TO BE CRUSHED AND PUT IN APPLE SAUCE BUT THIS PATIENT CAN BE VERY KIND AND HAS SWEET WORDS TO SAY AT TIMES SUCH "I LOVE YOU". WILL FOLLOW POC
[2019-08-20 20:00] VITALS: BP 138/87
--- NOTE | 2019-08-21 08:30 | NUR ---
The patient is awake and alert, he is pleasant this am. He did not sleep well last night. He is in a good mood. He is able to stand with staff assist, but he is unsteady. He is confused and has poor insight into his situation. Provide prescribed meds. The patient is compliant with meds. Continue POC.
[2019-08-21 10:55] VITALS: BP 116/65
[2019-08-21 20:00] VITALS: BP 120/65
--- NOTE | 2019-08-22 02:17 | NUR ---
B) Patient is alert and oriented to self, very confused and restless at times, constant motion, I) Administered scheduled medications monitored for safety R) Medication compliant, restless , up several times at night, P) Continue plan of care.
[2019-08-22 10:30] VITALS: BP 133/93
--- NOTE | 2019-08-22 17:15 | NUR ---
RECEIVED UP IN RECLINER THIS AM.ORIENTED TO SELF ONLY.COMPLIANT WITH STAFF AND MEDS.NO BEHAVIORS OBSERVED.WILL CONTINUE WITH CURERENT PLAN OF CARE,MONITOR FOR SAFET AND CHANGES.
[2019-08-22 20:00] VITALS: BP 125/86
--- NOTE | 2019-08-23 00:35 | NUR ---
B) Patient is alert and oriented to self, very confused and in constant motion at times, I) Administered scheduled medications as ordered, monitored for safety R) Medication compliant, pleasantly confused and in his own world, P) Continue plan of care.
[2019-08-23 12:57] VITALS: BP 101/73
--- NOTE | 2019-08-23 16:25 | NUR ---
RECEIVED THIS AM IN RECLINER IN [facility].IS ORIENTED TO SELF ONLY.COMPLIANT WITH STAFF AND MEDS.NO AGGRESSION OBSERVED.WILL CONTINUE WITH CURRENT PLAN OF CARE,MONITOR FOR CHANGES AND SAFETY.
[2019-08-23 20:00] VITALS: BP 112/69
--- NOTE | 2019-08-23 20:51 | NUR ---
RECEIVED IN DAYROOM. RESTING QUIETLY IN A RECLINER. CALM AND COOPERATIVE WITH CARE AND ASSESSMENT. NO SIGNS OF AGGRESSION. REDIRECT AND REORIENT NEEDED. CCONTINUES TO SIT CALMLY IN DAYROOM. CONTINUE PLAN OF CARE.
[2019-08-24 10:28] VITALS: BP 130/80
--- NOTE | 2019-08-24 12:00 | NUR ---
RECEIVED IN HALLWAY OUTSIDE OF NURSES STATION. CALM AND COOPERATIVE WITH CARE JALEN ASSESSMENT. NO AGGRESSION. REDIRECT AND REORIENT NEEDED. EATING LUNCH AT THIS TIME. CONTINUE PLAN OF CARE.
--- NOTE | 2019-08-24 14:14 | PN ---
PATIENT:LISA RIZO MEDICAL RECORD: [id number] LOCATION:[facility] ADMISSION DATE: 08/03/19 PROGRESS NOTE DATE OF SERVICE: 08/20/2019 SUBJECTIVE: The patient's case was discussed with staff. He has no new complaint. OBJECTIVE: The patient had some auditory and visual hallucinations right now. Last night was agitated and received p.r.n. Haldol. He is awake and alert today. ASSESSMENT: Dementia. PLAN: Current medicines have been reviewed. I will likely make some minor adjustments and I know that our bilingual social worker is working with the family. TRANSINT:[id number] Voice Confirmation ID: [id number] DOCUMENT ID: [id number] ERNIE GARCIA MD at 1414 CC: [id number] DICTATION DATE: 08/20/19 163 SECURITY EXPERT: 08/21/19 0002 ADM IN [place] [id number] [place] [id number]
[2019-08-24 20:38] VITALS: BP 104/64
--- NOTE | 2019-08-24 23:02 | NUR ---
RECEIVED IN DAYROOM. SITTING IN A RECLINING CHAIR WITH PEERS AT HIS SIDE. CALM AND COOPERATIVE WITH CARE AND ASSESSMENT. NO SIGNS OF AGGRESSION. REDIRECT AND REORIENT NEEDED. RESTING IN BED WITH EYES CLOSED AT THIS TIME. CONTINUE PLAN OF CARE.
[2019-08-25 08:07] VITALS: BP 126/78
--- NOTE | 2019-08-25 12:00 | NUR ---
RECEIVED IN HALLWAY OUTSIDE OF NURSES STATION. CALM AND COOPERATIVE WITH CARE AND ASSESSMENT. NO BEHAVIORS. REDIRECT AND REORIENT NEEDED. EATING AT THIS TIME. CONTINUE PLAN OF CARE.
--- NOTE | 2019-08-25 15:31 | PN ---
PATIENT:LISA RIZO MEDICAL RECORD: [id number] LOCATION:[facility] ADMISSION DATE: 08/03/19 PROGRESS NOTE DATE OF SERVICE: 08/24/2019 SUBJECTIVE: The patient's case was discussed with staff. He has no new complaint. OBJECTIVE: The patient is eating much better. He is tolerating his medicines well. ASSESSMENT: Dementia. PLAN: The patient will be maintained on current medicines, which I have reviewed. His joint terminal attack controller prognosis is guarded. TRANSINT:[id number] Voice Confirmation ID: [id number] DOCUMENT ID: [id number] ERNIE GARCIA MD at 1531 CC: [id number] DICTATION DATE: 08/24/19 1605 AUTOMOTIVE VEHICLE INSPECTOR: 08/25/19 0221 ADM IN [place] [address] [place] [address]
[2019-08-25 19:24] VITALS: BP 112/81
--- NOTE | 2019-08-26 00:47 | NUR ---
RECEIVED IN DAYROOM. SITTING IN A RECLINING CHAIR WITH PEERS BY HIS SIDE. RESTLESS AT TIMES. CALM AND COOPERATIVE WITH CARE AND ASSESSMENT. NO SIGNS OF AGGRESSION. REDIRECT AND REORIENT NEEDED. RESTING QUIETLY WITH EYES CLOSED AT THIS TIME. CONTINUE PLAN OF CARE.
[2019-08-26 07:56] VITALS: BP 140/71
--- NOTE | 2019-08-26 13:02 | PN ---
PATIENT:LISA RIZO MEDICAL RECORD: [id number] LOCATION:[facility] ADMISSION DATE: 08/03/19 PROGRESS NOTE DATE OF SERVICE: 08/25/2019 SUBJECTIVE: The patient's case was discussed with staff. He has no new complaint. OBJECTIVE: The patient denies intent to harm himself or others. He is quite impaired cognitively and only partially oriented. He has not been aggressive. ASSESSMENT: The patient will be transitioned out of the hospital soon. Family is going to care for him at home. TRANSINT:[id number] Voice Confirmation ID: [id number] DOCUMENT ID: [id number] ERNIE GARCIA MD at 1302 CC: [id number] DICTATION DATE: 08/25/19 1642 ASSOCIATE AGENT INSURANCE SALES: 08/26/19 0046 ADM IN [facility] [address] [place] [address]
--- NOTE | 2019-08-26 14:29 | NUR ---
Nutrition Follow-up: Chart reviewed. Diet upgraded from puree yesterday. Appetite and PO intake has improved over the past week. Noted Linzess increased yesterday. Diet: Regular Mech Soft Chopped Meats + Ensure TID PO intake: ~87% average x last 9 meals Last BM: 08/21/19 x 3. Wt: 126# (08/23/19); Admit WT: 139.8# (08/03/19) Meds noted: linzess, megace. No new labs. Recommend continue current diet or per PAID SEARCH SPECIALIST recommendations. Continue oral nutrition supplement. Recommend continued encouraged PO intake at meals. RD following.
[2019-08-26] MEDS ORDERED: NAMENDA5 MG PO (16:22)
[2019-08-26] MEDS ORDERED: Megace ES [CHEMO] PO (16:23)
[2019-08-26] MEDS ORDERED: LINZESS145 MCG PO (16:23)
[2019-08-26] MEDS ORDERED: MELATONIN 3 MG1 TAB PO (16:23)
--- NOTE | 2019-08-26 17:57 | NUR ---
PT IS AWAKE AND ALERT TO PERSON ONLY. CALM AND COOPERATIVE WITH ASSESSMENT. PRESCRIBED MEDS PROVIDED ORDERED. MED COMPLIANT. NO BEHAVIORS NOTED AT THIS TIME. FALL PRECAUTIONS IN PLACE. WILL CPOC.
[2019-08-26 20:47] VITALS: BP 137/76
--- NOTE | 2019-08-27 01:51 | NUR ---
B.) PT IS ALERT AND ORIENTED TO SELF ONLY. HE HAS POOR INSIGHT INTO HIS SITUATION. HE IS CALM AND COOPERATIVE WITH STAFF. HE IS OBSERVED JOKING WITH THE STAFF AND SOCIALIZING WITH PEERS. I.) PROVIDED PM MEDICATIONS PRESCRIBED. REDIRECT NEEDED. R.) COMPLIANT WITH ALL MEDICATIONS. EASY TO REDIRECT. P.) WILL CONTINUE TO MONITOR.
[2019-08-27 10:08] VITALS: BP 76/49
--- NOTE | 2019-08-27 14:17 | NUR ---
THIS NURSE CALLED REPORT INTO [facility] THIS SHIFT FOR DISCHARGE. PAPERWORK FAXED AND PAPER COPY SENT WITH FAMILY DURING DISCHARGE.
--- NOTE | 2019-08-27 15:32 | PN ---
PATIENT:LISA RIZO MEDICAL RECORD: [id number] LOCATION:[facility] ADMISSION DATE: 08/03/19 PROGRESS NOTE DATE OF SERVICE: 08/26/2019 SUBJECTIVE: The patient's case was discussed with staff. He has no new complaint. OBJECTIVE: The patient is in good behavioral control. He has limited insight about his situation. He is tolerating his medicines well. He is confused and somewhat agitated, but he has not been openly aggressive or disruptive in any particular way. ASSESSMENT: Dementia. PLAN: The patient will be transitioned out of the hospital tomorrow. Long-term prognosis is guarded. TRANSINT:[id number] Voice Confirmation ID: [id number] DOCUMENT ID: [id number] ERNIE GARCIA MD at 1532 CC: [id number] DICTATION DATE: 08/26/19 1621 SNOWSPORT INSTRUCTOR: 08/27/19 0216 ADM IN [place] [id number] [place] [id number]
--- NOTE | 2019-08-28 09:52 | PN ---
PATIENT:LISA RIZO MEDICAL RECORD: [id number] LOCATION:[facility] ADMISSION DATE: 08/03/19 PROGRESS NOTE DATE OF SERVICE: 08/27/2019 SUBJECTIVE: The patient's case was discussed with staff. He has no new complaint. OBJECTIVE: The patient is eating adequately. He is sleeping adequately. ASSESSMENT: Dementia. PLAN: The patient will be transitioned out of the hospital today. Long-term prognosis is guarded. Followup will be with his primary care physician. TRANSINT:[id number] Voice Confirmation ID: [id number] DOCUMENT ID: [id number] ERNIE GARCIA MD at 0952 CC: [id number] DICTATION DATE: 08/27/19 165 LENS BLANK GAUGER: 08/27/19 6487 DIS IN 08/27/[address] [facility] [address] [place] [address]
== END 2019-08-27 14:15 | disposition other institution (70) | DRG 884 ==
LOC: D.PSYCH 13:45
PROVIDERS: Family Medicine; ADMIT Psychiatry & Neurology Psychiatry; ATTEND Psychiatry & Neurology Psychiatry
DX: F01.51 Vascular dementia, unspecified severity, with behavioral disturbance (principal); I10 Essential (primary) hypertension; K21.9 Gastro-esophageal reflux disease without esophagitis; N40.0 Benign prostatic hyperplasia without lower urinary tract symptoms; M19.91 Primary osteoarthritis, unspecified site; R13.12 Dysphagia, oropharyngeal phase; R63.0 Anorexia; R13.10 Dysphagia, unspecified; Z68.20 Body mass index [BMI] 20.0-20.9, adult